=== PATIENT | female | born 1960 | race Caucasian/White ===

== ENCOUNTER 2023-10-08 08:27 | Emergency (ER) | payer MEDICAID, OTHER ==
[~2023-10-08] VITALS: Ht 154.9 cm; Wt 66.0 kg
[2023-10-08 08:48] VITALS: O2SAT 99
[2023-10-08] MEDS ORDERED: DIPH25CA83 MT (09:11)
[2023-10-08] MEDS ORDERED: PERM60CR4 TP (09:11)
[2023-10-08] MEDS: DIPHENHYDRAMINE 25MG CAPSULE PO ONE (09:15)
[2023-10-08 09:48] VITALS: BP 117/79; PULSE 84; RESP 18; TEMP 98.2
== END 2023-10-08 10:11 | disposition home or self-care (01) ==
LOC: ER 08:27
DX: S80.862A Insect bite (nonvenomous), left lower leg, initial encounter (principal); S80.861A Insect bite (nonvenomous), right lower leg, initial encounter; W57.XXXA Bitten or stung by nonvenomous insect and other nonvenomous arthropods, initial encounter; Y93.89 Activity, other specified; Y92.89 Other specified places as the place of occurrence of the external cause; Y99.8 Other external cause status
CPT/HCPCS: 99282; Q0163